=== PATIENT | male | born 2000 | race Two or more races ===

== ENCOUNTER 2022-10-15 21:56 | Emergency (ER) | payer SELFPAY ==
[~2022-10-15] VITALS: Ht 188 cm; Wt 89.8 kg
--- NOTE | 2022-10-15 23:00 | NUR ---
seen and examined by Dr. Duran
[2022-10-15] MEDS ORDERED: CIPROFLOXACIN 0.3% OPHT DROP 2.5 ML BOTTLE ONE (23:28)
[2022-10-15] MEDS ORDERED: CIPROFLOXACIN 0.3% OPHT DROP 2.5 ML BOTTLE OP ONE (23:30)
--- NOTE | 2022-10-15 23:33 | NUR ---
Patient discharged to home in stable condition. Written and verbal after care instructions given. Patient verbalizes understanding of instructions. Stressed follow up or return to ER for worsening s/s.
[2022-10-15 23:34] VITALS: BP 118/80
== END 2022-10-15 23:35 | disposition home or self-care (01) ==
LOC: ER 21:56
DX: H10.33 Unspecified acute conjunctivitis, bilateral (principal)
CPT/HCPCS: A4663